=== PATIENT | male | born 1995 | race Caucasian/White ===

== ENCOUNTER 2022-05-06 02:02 | Emergency (ER) | payer BC, OTHER ==
[~2022-05-06] VITALS: Ht 182.9 cm; Wt 86.2 kg
[~2022-05-06 02:02] MED LIST: IMODIUM A-D2 M2 PO; ONDANSETRON ODT4 MG PO
[2022-05-06] MEDS ORDERED: PERCOCET 5-3251 EACH PO (03:13)
[2022-05-06] MEDS ORDERED: FLOMAX0.4 MG PO (03:30)
[2022-05-06] MEDS ORDERED: ONDANSETRON ODT8 MG PO (03:30)
== END 2022-05-06 04:12 | disposition home or self-care (01) ==
LOC: ED 02:02
DX: U07.1 COVID-19 (principal); N13.2 Hydronephrosis with renal and ureteral calculous obstruction; G43.909 Migraine, unspecified, not intractable, without status migrainosus; F17.200 Nicotine dependence, unspecified, uncomplicated
CPT/HCPCS: 36415; 74176; 80053; 81001; 85025; 87502; 96374; 96375; 99284-25; A9270; J1170; J1885; J2405; J7030; U0003